=== PATIENT | male | born 1970 | race Caucasian/White ===

== ENCOUNTER 2021-06-27 07:34 | Outpatient (CLI) | payer OTHER ==
[~2021-06-27 07:34] MED LIST: CELEBREX100 MG PO; KETO10TA2 PO; MEDROLPACK PO; ORPH100T PO; SKELAXIN800 MG PO
== END 2021-06-27 07:35 | disposition home or self-care (01) ==
LOC: NUCLEAR 07:34
PROVIDERS: ATTEND Specialist
DX: R00.2 Palpitations (principal); I25.9 Chronic ischemic heart disease, unspecified; I50.1 Left ventricular failure, unspecified
CPT/HCPCS: 78452; 93017; A9500

== ENCOUNTER 2021-09-07 07:55 | Outpatient (CLI) | payer OTHER | END 2021-09-07 08:04 | disposition home or self-care (01) | LOC: SONOGRAMA 07:55 | PROVIDERS: ATTEND Urology | DX: R31.1 Benign essential microscopic hematuria (principal) ==